=== PATIENT | male | born 1965 | race American Indian/Alaskan Native ===

== ENCOUNTER 2018-02-20 07:00 | Emergency (ER) | payer MEDICAID ==
[2018-02-20 08:17] LABS: Basophils % (Auto) 0.4 % (0.0-1.8); Eosinophils # (Auto) 0.1 K/mm3 (0.0-0.4); Eosinophils % (Auto) 1.2 % (0.0-4.3); Hematocrit 50.7 % (35.5-45.6); Hemoglobin 16.6 gm/dl (11.8-15.2); Lymphocytes # (Auto) 2.5 K/mm3 (1.2-5.4); Lymphocytes % (Auto) 32.6 % (13.4-35.0); Mean Corpuscular HGB Conc 33 % (32-34); Mean Corpuscular Hemoglobin 29 pg (28-32); Mean Corpuscular Volume 89 fl (84-94); Monocytes # (Auto) 0.5 K/mm3 (0.0-0.8); Monocytes % (Auto) 6.8 % (0.0-7.3); Platelet Count 215 K/mm3 (140-440); Red Blood Count 5.73 M/mm3 (3.65-5.03); Red Cell Distribution Width 15.6 % (13.2-15.2)
[2018-02-20 08:35] LABS: BUN/Creatinine Ratio 11; Blood Urea Nitrogen 9 mg/dL (9-20); Calcium 9.3 mg/dL (8.4-10.2); Hemolysis Index 154; Lipase 63 units/L (13-60)
[2018-02-20 09:04] LABS: Alanine Aminotransferase 15 units/L (7-56)
[2018-02-20] MEDS ORDERED: SUBLIMAZE IV ONE (09:10)
[2018-02-20] MEDS ORDERED: ZOFRAN IV ONE (09:10)
[2018-02-20] MEDS ORDERED: NACL 0.9% 1000 ML 1,000 ML IV ONE (09:10)
--- NOTE | 2018-02-20 09:16 | Emergency Department Report ---
ED Abdominal Pain HPI - General Chief Complaint: Abdominal Pain Stated Complaint: ABD/BACK PAIN Time Seen by Provider: 02/20/18 09:06 Source: patient Mode of arrival: Wheelchair Limitations: No Limitations - History of Present Illness Initial Comments: Patient is 52 years old male with history of chronic pancreatitis secondary to alcoholism. Patient stated that he is in rehabilitation now for alcohol. He stated that since been having epigastric abdominal pain for the last 3 days. Pain radiated to his back. Associated with nausea but no vomiting. No diarrhea. Patient denied any history of fever. No urinary symptoms. MD Complaint: abdominal pain -: days(s) Location: epigastric Radiation: back Migration to: no migration Severity: moderate Quality: sharp - Related Data Previous Rx's Medication Instructions Recorded Last Taken Type Ondansetron [Zofran Odt] 4 mg PO Q8HR PRN #14 tab.rapdis 02/20/18 Unknown Rx traMADol [Ultram 50 MG tab] 50 mg PO Q4HR PRN #14 tablet 02/20/18 Unknown Rx Allergies Allergy/AdvReac Type Severity Reaction Status Date / Time No Known Allergies Allergy Unverified 02/20/18 07:29 ED Review of Systems ROS: Stated complaint: ABD/BACK PAIN Other details as noted in HPI Comment: All other systems reviewed and negative Constitutional: denies: chills, fever Cardiovascular: denies: chest pain, palpitations Gastrointestinal: abdominal pain, nausea. denies: vomiting, diarrhea, constipation, hematemesis, melena, hematochezia Genitourinary: denies: urgency, dysuria, frequency, hematuria, discharge Musculoskeletal: back pain Neurological: denies: headache, weakness, numbness, paresthesias, confusion, abnormal gait, vertigo ED Past Medical Hx - Past Medical History Previous Medical History?: Yes Hx Hypertension: Yes Hx Diabetes: Yes ("borderline") Additional medical history: pancreatitis - Surgical History Past Surgical History?: No - Social History Smoking Status: Current Every Day Smoker Substance Use Type: Prescribed - Medications Home Medications: Home Medications Medication Instructions Recorded Confirmed Last Taken Type Ondansetron [Zofran Odt] 4 mg PO Q8HR PRN #14 tab.rapdis 02/20/18 Unknown Rx traMADol [Ultram 50 MG tab] 50 mg PO Q4HR PRN #14 tablet 02/20/18 Unknown Rx ED Physical Exam - General Limitations: No Limitations General appearance: alert, in no apparent distress - Head Head exam: Present: atraumatic, normocephalic, normal inspection - Eye Eye exam: Present: normal appearance - ENT ENT exam: Present: normal exam, normal orophraynx, mucous membranes dry - Neck Neck exam: Present: normal inspection, full ROM. Absent: tenderness, meningismus, lymphadenopathy, thyromegaly - Respiratory Respiratory exam: Present: normal lung sounds bilaterally. Absent: respiratory distress, wheezes, rales, rhonchi, stridor, chest wall tenderness, accessory muscle use, decreased breath sounds, prolonged expiratory - Cardiovascular Cardiovascular Exam: Present: regular rate, normal rhythm, normal heart sounds - GI/Abdominal GI/Abdominal exam: Present: soft, tenderness (epigastric), normal bowel sounds. Absent: distended, guarding, rebound, rigid, organomegaly, mass, bruit, pulsatile mass, hernia - Extremities Exam Extremities exam: Present: normal inspection, full ROM, normal capillary refill - Back Exam Back exam: Present: normal inspection, full ROM. Absent: CVA tenderness (L) - Neurological Exam Neurological exam: Present: alert, oriented X3, CN II-XII intact, normal gait. Absent: abnormal gait, motor sensory deficit, reflexes normal - Skin Skin exam: Present: warm, intact, normal color ED Course Vital Signs 02/20/18 02/20/18 07:29 09:33 Temperature 97.6 F Pulse Rate 61 Respiratory 18 16 Rate Blood Pressure 125/89 O2 Sat by Pulse 99 Oximetry - Reevaluation(s) Reevaluation #1: 02/20/18 11:54 Patient stated that she is feeling much better. His pain completely resolved. ED Medical Decision Making - Lab Data Result diagrams: 02/20/18 08:09 02/20/18 08:09 - Radiology Data Radiology results: report reviewed Referring Physician: IVAN RAMIREZ Patient Name: NATALIIA IBRAHIM Date of : 1965 Sex: Male Report Date: 2018-02-20 Report Status: Finalized Findings [facility] [address] [place] [address] Cat Scan Report Signed Patient: NATALIIA IBRAHIM MR#: [id number] : 1965 Acct:[id number] Age/Sex: 52 / M ADM Date: 02/20/18 Loc: ED Attending Dr: Ordering Physician: IVAN RAMIREZ Date of Service: 02/20/18 Procedure(s): CT abdomen pelvis w con Accession Number(s): [id number] cc: IVAN RAMIREZ CT abdomen and pelvis with contrast: Abdominal pain. Following administration of intravenous and oral contrast sections are obtained from lower chest to the ischium. Coronal and sagittal 2-D reformatted images included. The visualized lung bases are clear. The abdominal organs are unremarkable. There are chunky calcifications throughout the entire pancreas. The pancreas is generally inhomogeneous and there is mild dilatation of the pancreatic duct no discrete mass or cyst identified. There is some question concerning edematous tissue along the anterior margin of the pancreas. No free fluid noted. The retroperitoneal structures are otherwise unremarkable. The small bowel is partially opacified and appears grossly unremarkable. The colon contains a normal degree of fecal matter. No evidence of inflammatory change noted. Impressions: The findings are consistent with chronic pancreatitis. The possibility of current inflammation cannot be excluded. Transcribed By: [facility] Dictated By: MADISON LUCERO MD Electronically Authenticated By: MADISON LUCERO MD Signed Date/Time: 02/20/18 1107 DD/ 110 TD/TT: 02/20/18 110 Critical care attestation.: If time is entered above; I have spent that time in minutes in the direct care of this critically ill patient, excluding procedure time. ED Disposition Clinical Impression: Abdominal pain, Pancreatitis Disposition: DC- TO HOME OR SELFCARE Is pt being admited?: No Condition: Stable Instructions: Abdominal Pain (ED), Pancreatitis (ED) Prescriptions: Ondansetron [Zofran Odt] 4 mg PO Q8HR PRN #14 tab.rapdis PRN Reason: Nausea And Vomiting traMADol [Ultram 50 MG tab] 50 mg PO Q4HR PRN #14 tablet PRN Reason: Pain Referrals: PRIMARY CARE, [Primary Care Provider] - 3-5 Days
[2018-02-20] MEDS ORDERED: SUBLIMAZE IV NR (10:00)
--- NOTE | 2018-02-20 11:28 | Cat Scan Report ---
CT abdomen and pelvis with contrast: Abdominal pain. Following administration of intravenous and oral contrast sections are obtained from lower chest to the ischium. Coronal and sagittal 2-D reformatted images included. The visualized lung bases are clear. The abdominal organs are unremarkable. There are chunky calcifications throughout the entire pancreas. The pancreas is generally inhomogeneous and there is mild dilatation of the pancreatic duct no discrete mass or cyst identified. There is some question concerning edematous tissue along the anterior margin of the pancreas. No free fluid noted. The retroperitoneal structures are otherwise unremarkable. The small bowel is partially opacified and appears grossly unremarkable. The colon contains a normal degree of fecal matter. No evidence of inflammatory change noted. Impressions: The findings are consistent with chronic pancreatitis. The possibility of current inflammation cannot be excluded.
[2018-02-20 13:07] VITALS: BP 130/93
== END 2018-02-20 12:55 | disposition home or self-care (01) ==
LOC: ED 07:00
DX: K85.90 Acute pancreatitis without necrosis or infection, unspecified (principal); R10.13 Epigastric pain; I10 Essential (primary) hypertension; F17.200 Nicotine dependence, unspecified, uncomplicated
CPT/HCPCS: 36415; 74177; 80053; 83690; 84484; 85025; 96361; 96374; 96375; 99284; J2405; J3010; J7030; Q9967

== ENCOUNTER 2018-02-21 15:15 | Emergency (ER) | payer MEDICAID ==
--- NOTE | 2018-02-21 19:43 | Emergency Department Report ---
ED Medical Clearance HPI - General Chief complaint: Medical Clearance Stated complaint: PANCRETITIS Time Seen by Provider: 02/21/18 19:37 Source: patient Mode of arrival: Ambulatory - History of Present Illness Initial comments: 52-year-old [place] male with a past medical history of chronic pancreatitis was seen here yesterday and states that he did not get his medication filled because he takes stronger medication at home for his chronic pancreatitis. Patient complains of abdominal pain 7 out of 10. Home medications: Previous Rx's Medication Instructions Recorded Last Taken Type Ondansetron [Zofran Odt] 4 mg PO Q8HR PRN #14 tab.rapdis 02/20/18 Unknown Rx Ondansetron [Zofran Odt] 4 mg PO Q8HR PRN #14 tab.rapdis 02/20/18 Unknown Rx traMADol [Ultram 50 MG tab] 50 mg PO Q4HR PRN #14 tablet 02/20/18 Unknown Rx traMADol [Ultram 50 MG tab] 50 mg PO Q4HR PRN #14 tablet 02/20/18 Unknown Rx HYDROcodone/ACETAMINOPHEN [[place] 1 each PO Q6H #12 tablet 02/21/18 Unknown Rx 7.5-325 Tablet] Allergies/Adverse reactions: Allergies Allergy/AdvReac Type Severity Reaction Status Date / Time No Known Allergies Allergy Unverified 02/20/18 07:29 ED Review of Systems ROS: Stated complaint: PANCRETITIS Other details as noted in HPI Constitutional: denies: chills, fever Gastrointestinal: abdominal pain, nausea. denies: vomiting Genitourinary: denies: urgency, dysuria Musculoskeletal: denies: back pain, joint swelling, arthralgia ED Past Medical Hx - Past Medical History Previous Medical History?: Yes Hx Hypertension: Yes Hx Diabetes: Yes ("borderline") Additional medical history: pancreatitis - Surgical History Past Surgical History?: No - Social History Smoking Status: Current Every Day Smoker Substance Use Type: Prescribed - Medications Home Medications: Home Medications Medication Instructions Recorded Confirmed Last Taken Type Ondansetron [Zofran Odt] 4 mg PO Q8HR PRN #14 tab.rapdis 02/20/18 Unknown Rx Ondansetron [Zofran Odt] 4 mg PO Q8HR PRN #14 tab.rapdis 02/20/18 Unknown Rx traMADol [Ultram 50 MG tab] 50 mg PO Q4HR PRN #14 tablet 02/20/18 Unknown Rx traMADol [Ultram 50 MG tab] 50 mg PO Q4HR PRN #14 tablet 02/20/18 Unknown Rx HYDROcodone/ACETAMINOPHEN [[place] 1 each PO Q6H #12 tablet 02/21/18 Unknown Rx 7.5-325 Tablet] ED Physical Exam - General Limitations: No Limitations General appearance: alert, in no apparent distress - Head Head exam: Present: atraumatic, normocephalic - ENT ENT exam: Present: mucous membranes moist - Respiratory Respiratory exam: Present: normal lung sounds bilaterally. Absent: respiratory distress - Cardiovascular Cardiovascular Exam: Present: regular rate, normal rhythm. Absent: systolic murmur, diastolic murmur, rubs, gallop - GI/Abdominal GI/Abdominal exam: Present: soft, tenderness - Extremities Exam Extremities exam: Present: normal inspection, full ROM - Back Exam Back exam: Present: normal inspection, full ROM - Neurological Exam Neurological exam: Present: alert, oriented X3 - Psychiatric Psychiatric exam: Present: normal affect, normal mood - Skin Skin exam: Present: warm, dry, intact, normal color. Absent: rash ED Course Vital Signs 02/21/18 15:57 Temperature 98 F Pulse Rate 69 Respiratory 18 Rate Blood Pressure 119/89 O2 Sat by Pulse 99 Oximetry ED Medical Decision Making - Medical Decision Making Patient's been evaluated by this provider fast track. I discussed the patient given some [place] for pain. Stressed importance for him to follow up with a primary care provider as well as a raw silk grader. Patient verbalized understanding. ED Disposition Clinical Impression: Pancreatitis Qualifiers: Chronicity: chronic Pancreatitis type: unspecified pancreatitis type Qualified Code(s): K86.1 - Other chronic pancreatitis Disposition: DC-01 TO HOME OR SELFCARE Is pt being admited?: No Does the pt Need Aspirin: No Condition: Stable Instructions: Biliary Colic (ED) Additional Instructions: Please take pain medication nausea medicine as prescribed. Do not operate heavy machinery while taking [place]. Please follow-up with the primary care provider in a raw silk grader as we do not manage chronic pain. Prescriptions: HYDROcodone/ACETAMINOPHEN [[place] 7.5-325 Tablet] 1 each PO Q6H #12 tablet Referrals: PRIMARY CARE, [Primary Care Provider] - 3-5 Days [facility] [place] [Provider Group] - 3-5 Days [facility] [Provider Group] - 3-5 Days [facility] [Provider Group] - 3-5 Days Forms: Work/School Release Form(ED)
[2018-02-21 20:07] VITALS: BP 122/84
== END 2018-02-21 19:55 | disposition home or self-care (01) ==
LOC: ED 15:15
DX: K85.90 Acute pancreatitis without necrosis or infection, unspecified (principal); I10 Essential (primary) hypertension; E11.9 Type 2 diabetes mellitus without complications; F17.200 Nicotine dependence, unspecified, uncomplicated
CPT/HCPCS: 99282